=== PATIENT | female | born 2000 | race Caucasian/White ===

== ENCOUNTER 2024-12-27 08:49 | Emergency (ER) | payer OTHER ==
[~2024-12-27] VITALS: Ht 162.6 cm; Wt 53.6 kg
[2024-12-27] MEDS ORDERED: OFLO5DRO49 OS (08:58)
[2024-12-27] MEDS: ACETAMINOPHEN 500 MG TABLET PO ONE (09:28)
[2024-12-27 11:47] VITALS: BP 106/64; PULSE 85; RESP 18; TEMP 98.7; O2SAT 98
== END 2024-12-27 12:23 ==
LOC: EMS 08:52
DX: T76.21XA Adult sexual abuse, suspected, initial encounter (principal); R55 Syncope and collapse; R51.9 Headache, unspecified; X58.XXXA Exposure to other specified factors, initial encounter; Y93.89 Activity, other specified; Y92.89 Other specified places as the place of occurrence of the external cause; Y99.8 Other external cause status
CPT/HCPCS: 99283